=== PATIENT | female | born 1960 ===

== ENCOUNTER 2017-12-17 11:45 | Emergency (ER) | payer OTHER ==
[2017-12-17 11:46] VITALS: BMI 27.5
--- NOTE | 2017-12-17 12:18 | C.PDOC ---
History Of Present Illness 57 y/o female with PMHx of PKD brought in by family for possible emergent dialysis. Daughter at bedside states the patient has had a dry cough for 5 days. They went to see their PMD last week, and at that time the patient was noted to have lower leg swelling bilaterally, left > right. Daughter notes that whenever the patient has swelling, the left is always more swollen than right. Otherwise patient denies any CP, SOB, CORREA, significant weight gain, fever, chills, or other complaints. Daughter states they called the nephrology office today and were referred to the ED for emergent dialysis. [employer] Supervisor: Dr. Cano/[facility] group Time Seen by Provider: 12/17/17 12:16 Chief Complaint (Nursing): Cough, Cold, Congestion History Per: Patient, Family (Daughter at bedside, translating for pt) Onset/Duration Of Symptoms: Days Current Symptoms Are (Timing): Still Present Reports Recently: Treated By A Physician Past Medical History Reviewed: Historical Data, Nursing Documentation, Vital Signs Vital Signs: Last Vital Signs Temp 97.7 F 12/17/17 15:50 Pulse 71 12/17/17 15:50 Resp 20 12/17/17 15:50 BP 153/73 H 12/17/17 15:50 Pulse Ox 100 12/17/17 15:50 - Medical History PMH: Anxiety, GERD, HTN, Hypercholesterolemia, Hyperlipidemia, Hypothyroidism, Osteoporosis, Pneumonia, End Stage Renal Disease, Chronic Kidney Disease Denies: Hyperthyroidism Surgical History: Appendectomy - [facility] Procedures DX ULTRASOUND-DIGESTIVE (09/22/11) ESOPHAGOGASTRODUODENOSCOPY [EGD] W/CLOSED BIOPSY (09/22/11) INJECT/INFUSE ELECTROLYT (11/29/14) INJECT/INFUSE NEC (11/29/14) MRI OF OTHER AND UNSPECIFIED SITES (06/24/06) URETERAL CATHETERIZATION (01/03/14) VACCINATION NEC (01/03/14) Family History: States: Unknown Family Hx - Social History Hx Tobacco Use: No Hx Alcohol Use: No (socially) Hx Substance Use: No - Immunization History Hx Tetanus Toxoid Vaccination: No Hx Influenza Vaccination: No Hx Pneumococcal Vaccination: No Review Of Systems Except As Marked, All Systems Reviewed And Found Negative. Constitutional: Negative for: Fever, Chills Cardiovascular: Negative for: Chest Pain Respiratory: Positive for: Cough. Negative for: Shortness of Breath, SOB with Excertion, Sputum Gastrointestinal: Negative for: Vomiting, Abdominal Pain, Diarrhea Genitourinary: Negative for: Dysuria, Incontinence, Hematuria Musculoskeletal: Positive for: Other (Lower leg swelling) Neurological: Negative for: Weakness, Numbness, Incoordination, Headache, Dizziness Physical Exam - Physical Exam Appears: Non-toxic, No Acute Distress Skin: Normal Color, Warm, Dry Head: Atraumatic, Normacephalic Eye(s): bilateral: Normal Inspection, PERRL, EOMI Nose: Normal Oral Mucosa: Moist Neck: Normal ROM Chest: Symmetrical Cardiovascular: Rhythm Regular, No Murmur Respiratory: No Accessory Muscle Use, Rales (mild basilar rales), No Rhonchi, No Wheezing Gastrointestinal/Abdominal: Soft, No Tenderness, No Distention Extremity: Normal ROM, No Calf Tenderness, Capillary Refill (less than 2 sec), Swelling (+1 edema to bilateral lower extremities, left > right) Pulses: Left Dorsalis Pedis: Normal, Right Dorsalis Pedis: Normal Neurological/Psych: Oriented x3, Normal Speech, Normal Cranial Nerves ED Course And Treatment - Laboratory Results Result Diagrams: 12/17/17 12:48 12/17/17 12:48 O2 Sat by Pulse Oximetry: 99 Pulse Ox Interpretation: Normal - Radiology CXR: Interpreted by Me CXR Interpretation: Yes: No Acute Disease Progress - Re-Evaluation Re-evaluation Note: 12/17/17 13:41 D/W DR ARRIAGA C/F DR CANO. WILL CONSULT, ADMIT MED LAW RESEARCHER D/W DR Vy WILLETT WILL ADMIT 12/17/17 18:25 PER [employer], NO FLOOR OR TELE BEDS AVAILABLE FOR REST OF EVENING. PT STATES FRUSTRATION AT PROLONGED ER STAY, DOESNT WANT TO STAY FOR ADMISSION. STATES HAS APPT W DR CANO 12/18. NARD, VSS NO INDICATION FOR EMERGENCY HD. WILL DC. DR ARRIAGA NOTIFIED - Data Reviewed Data Reviewed: Lab, Diagnostic imaging, EKG, Old records - Continuity of Care Discussed patient case with:: Patient, Family-HIPPA compliant Medical Decision Making Medical Decision Making: Impression: ACID MIXER COUGH, RECUR SWELLING. H/O CRI, PCO REFERRED CONCERN RENAL FAILURE. NARD. R/ O ACUTE RENAL FAIL. Initial Plan: --Labs --EKG --Chest X-Ray --[facility] nephrology group Disposition Counseled Patient/Family Regarding: Studies Performed, Diagnosis - Disposition Disposition: HOME/ ROUTINE Disposition Time: 18:28 Condition: GOOD - POA Present On Arrival: None - Clinical Impression Clinical Impression: Renal insufficiency, Swelling, Cough - Scribe Statement The provider has reviewed the documentation as recorded by the Shailaibdestinee Leslie Provider Attestation: All medical record entries made by the Shailaibdestinee were at my direction and personally dictated by me. I have reviewed the chart and agree that the record accurately reflects my personal performance of the history, physical exam, medical decision making, and the department course for this patient. I have also personally directed, reviewed, and agree with the discharge instructions and disposition. Decision To Admit - Pt Status Changed To: Hospital Disposition Of: Inpatient - Admit Certification Admit to Inpatient:: After my assessment, the patient will require hospitalization for at least two midnights. This is because of the severity of symptoms shown, intensity of services needed, and/or the medical risk in this patient being treated as an outpatient. - InPatient: Physician Admission Certification: I certify that this patient requires 2 or more midnights of care for the following reason:: SEE NOTE - . Bed Request Type: Regular Admitting Physician: Nivia Willett Patient Diagnosis: Renal insufficiency, Swelling, Cough
[2017-12-17 12:56] LABS: BASO % 0.5 % (0.0-2.0); EOS # 0.3 K/uL (0.0-0.7); HEMOGLOBIN 10.6 g/dL (11.0-16.0); LYMPH # 1.7 K/uL (1.0-4.3); LYMPH % 21.9 % (20.0-40.0); MEAN CELL VOLUME 90.7 fL (81.0-99.0); MEAN CORPUSCULAR HEMOGLOBIN 30.3 pg (27.0-31.0); MEAN CORPUSCULAR HGB CONC 33.4 g/dL (33.0-37.0); MEAN PLATELET VOLUME 8.8 fL (7.2-11.7); MONO # 0.6 K/uL (0.0-0.8); MONO % 7.7 % (0.0-10.0); NEUT # 5.2 K/uL (1.8-7.0); NEUT % 65.9 % (50.0-75.0); NRBC % 0.1 % (0.0-2.0); RBC 3.48 Mil/uL (3.80-5.20); RED CELL DISTRIBUTION WIDTH 13.7 % (11.5-14.5); WHITE BLOOD COUNT 7.9 K/uL (4.8-10.8)
[2017-12-17 13:07] LABS: PROTHROMBIN TIME 10.6 SECONDS (9.7-12.2)
[2017-12-17 13:17] LABS: ALB/GLOB RATIO 1.6 (1.0-2.1); ALBUMIN 4.4 g/dL (3.5-5.0); CALCIUM 9.1 mg/dl (8.6-10.4)
[2017-12-17 13:22] LABS: URINE BILIRUBIN NEGATIVE (NEGATIVE); URINE BLOOD 1+ (NEGATIVE); URINE CLARITY Clear (Clear); URINE COLOR Straw (YELLOW); URINE GLUCOSE (UA) NORMAL (Normal); URINE LEUKOCYTE ESTERASE TRACE Leu/uL (Negative); URINE PROTEIN NEGATIVE (NEGATIVE); URINE UROBILINOGEN NORMAL mg/dL (0.2-1.0)
--- NOTE | 2017-12-17 13:40 | RAD ---
Date of service: 12/17/2017 HISTORY: cough COMPARISON: No prior. TECHNIQUE: Chest PA and lateral FINDINGS: LUNGS: Mild bibasilar atelectasis. PLEURA: No significant pleural effusion identified. No pneumothorax apparent. CARDIOVASCULAR: Mild cardiomegaly. OSSEOUS STRUCTURES: No significant abnormalities. VISUALIZED UPPER ABDOMEN: Normal. OTHER FINDINGS: None. IMPRESSION: Mild bibasilar atelectasis.
[2017-12-17 15:54] VITALS: BP 153/73; PULSE 71; TEMP 97.7
[2017-12-17 15:57] VITALS: RESP 20
[2017-12-17 18:28] VITALS: O2SAT 99
--- NOTE | 2017-12-17 19:13 | CP.PCM.HP ---
Past Patient History - Infectious Disease Hx of Infectious Diseases: None - Tetanus Immunizations Tetanus Immunization: Unknown - Past Social History Smoking Status: Former Smoker - CARDIAC Hx Hypercholesterolemia: Yes Hx Hypertension: Yes - PULMONARY Hx Pneumonia: Yes - NEUROLOGICAL Hx Neurological Disorder: Yes Hx Vertigo: Yes - HEENT Hx HEENT Problems: No - RENAL Hx Chronic Kidney Disease: Yes - ENDOCRINE/METABOLIC Hx Hyperthyroidism: No Hx Hypothyroidism: Yes - HEMATOLOGICAL/ONCOLOGICAL Hx Blood Transfusions: No Hx Blood Transfusion Reaction: No - INTEGUMENTARY Hx Dermatological Problems: No - MUSCULOSKELETAL/RHEUMATOLOGICAL Hx Osteoporosis: Yes - GASTROINTESTINAL Hx Gastrointestinal Disorders: Yes Hx Gastroesophageal Reflux: Yes - GENITOURINARY/GYNECOLOGICAL Hx Genitourinary Disorders: Yes Hx Urinary Tract Infection: Yes - PSYCHIATRIC Hx Anxiety: Yes Hx Substance Use: No - SURGICAL HISTORY Hx Appendectomy: Yes - ANESTHESIA Hx Anesthesia: Yes Hx Anesthesia Reactions: No Hx Malignant Hyperthermia: No Meds Home Medications: Home Medication List Medication Instructions Recorded Confirmed Type Benzonatate [Tessalon Perles] 200 mg PO TID PRN #15 sgl 12/17/17 Rx Allergies/Adverse Reactions: Allergies Allergy/AdvReac Type Severity Reaction Status Date / Time PO contrast Allergy ITCHING Uncoded 12/17/17 11:55 Physical Exam - Constitutional Appears: Well - Head Exam Head Exam: ATRAUMATIC, NORMAL INSPECTION, NORMOCEPHALIC - Eye Exam Eye Exam: EOMI, Normal appearance, PERRL Pupil Exam: NORMAL ACCOMODATION, PERRL - ENT Exam ENT Exam: Mucous Membranes Moist, Normal Exam - Neck Exam Neck exam: Positive for: Normal Inspection - Respiratory Exam Respiratory Exam: Decreased Breath Sounds - Cardiovascular Exam Cardiovascular Exam: REGULAR RHYTHM, +S1, +S2 - GI/Abdominal Exam GI & Abdominal Exam: Diminished Bowel Sounds, Soft - Rectal Exam Rectal Exam: Deferred Results - Vital Signs Recent Vital Signs: Last Vital Signs Temp 97.7 F 12/17/17 15:50 Pulse 71 12/17/17 15:50 Resp 20 12/17/17 15:50 BP 153/73 H 12/17/17 15:50 Pulse Ox 99 12/17/17 18:29 - Labs Result Diagrams: 12/17/17 12:48 12/17/17 12:48 Labs: Laboratory Results - last 24 hr 12/17/17 12/17/17 12/17/17 12:48 12:48 12:48 WBC 7.9 RBC 3.48 L Hgb 10.6 L Hct 31.6 L MCV 90.7 MCH 30.3 MCHC 33.4 RDW 13.7 Plt Count 287 MPV 8.8 Neut % (Auto) 65.9 Lymph % (Auto) 21.9 Lane % (Auto) 7.7 Eos % (Auto) 4.0 Baso % (Auto) 0.5 Neut # (Auto) 5.2 Lymph # (Auto) 1.7 Lane # (Auto) 0.6 Eos # (Auto) 0.3 Baso # (Auto) 0.0 PT 10.6 INR 1.0 APTT 37 H Sodium 145 Potassium 4.3 Chloride 108 H Carbon Dioxide 22 Anion Gap 19 BUN 56 H Creatinine 4.2 H Est GFR ( Amer) 13 Est GFR (Non-Af Amer) 11 Random Glucose 121 H Calcium 9.1 Total Bilirubin 0.6 AST 17 ALT 22 Alkaline Phosphatase 96 Total Protein 7.1 Albumin 4.4 Globulin 2.7 Albumin/Globulin Ratio 1.6 Urine Color Urine Clarity Urine pH Ur Specific Burley Urine Protein Urine Glucose (UA) Urine Ketones Urine Blood Urine Nitrate Urine Bilirubin Urine Urobilinogen Ur Leukocyte Esterase Urine WBC (Auto) Urine RBC (Auto) 12/17/17 13:08 WBC RBC Hgb Hct MCV MCH MCHC RDW Plt Count MPV Neut % (Auto) Lymph % (Auto) Lane % (Auto) Eos % (Auto) Baso % (Auto) Neut # (Auto) Lymph # (Auto) Lane # (Auto) Eos # (Auto) Baso # (Auto) PT INR APTT Sodium Potassium Chloride Carbon Dioxide Anion Gap BUN Creatinine Est GFR ( Amer) Est GFR (Non-Af Amer) Random Glucose Calcium Total Bilirubin AST ALT Alkaline Phosphatase Total Protein Albumin Globulin Albumin/Globulin Ratio Urine Color Straw Urine Clarity Clear Urine pH 6.0 Ur Specific [place] 1.006 Urine Protein Negative Urine Glucose (UA) Normal Urine Ketones Negative Urine Blood 1+ H Urine Nitrate Negative Urine Bilirubin Negative Urine Urobilinogen Normal Ur Leukocyte Esterase Trace Urine WBC (Auto) 2 Urine RBC (Auto) 6 H
[2017-12-17] MEDS ORDERED: Potassium Chloride 10 mEq ER Tab PO STA ×3 (21:39→21:45)
[2017-12-17] MEDS ORDERED: ERGOCALCIFEROL 1.25 MG PO SCH (21:45)
[2017-12-17] MEDS ORDERED: Home Med 1 UNIT (Atorvastatin [Lipitor] 10 MG) PO SCH (21:45)
[2017-12-18] MEDS ORDERED: Levothyroxine 50 MCG TAB PO SCH ×2 (06:30→10:00)
[2017-12-18] MEDS ORDERED: CALCITRIOL 0.25 MCG PO SCH (10:00)
[2017-12-18] MEDS ORDERED: Pantoprazole 40 mg EC Tab PO SCH (10:00)
[2017-12-24] MEDS ORDERED: Ergocalciferol 50,000 Intl Units Cap PO SCH (10:00)
== END 2017-12-17 18:36 | disposition home or self-care (01) ==
LOC: C.ER 11:45 → C.9E 13:45 → UNDOADMIN 13:45 → C.9E 18:36 → UNDODISIN 22:51
DX: N28.9 Disorder of kidney and ureter, unspecified (principal); R05 Cough; M79.89 Other specified soft tissue disorders

== ENCOUNTER 2018-07-29 07:03 | Emergency (ER) | payer OTHER ==
[2018-07-29 07:03] VITALS: BMI 27.5
[2018-07-29 07:26] VITALS: TEMP 97.7
--- NOTE | 2018-07-29 07:50 | C.PDOC ---
History Of Present Illness RECUR VERTIGO @ 0230. ONSET WHILE SLEEPING, PS WAS TURNING IN BED FELT "VIOLENT SPINNING" W NEW ONSET ASSOC NAUSEA. TOOK ZOFRAN 4 MG. PS AWOKE 0600 FELT RECUR "SEVERE SPINNING" UPON STANDING. TOOK MECLIZINE 12.5. STILL W PERSISTENT VERTIGO AND NAUSEA. +PHOTOPHOBIA. DENIES FOCAL WEAKNESS. PS UNABLE TO START HD THIS MORNING, REFERRED BY DIALYSIS CENTER FOR EVAL. DENIES OTHER ASSOC SX PMHx of ESRD requiring HD, Autosomal Dominant Polycystic Kidney Disease, GERD, HTN, HLD, hypothyroidism, osteoporosis, CKD stage 5 EXAM MOD DIST NONTOXIC HEENT +PHOTOPHOBIA UNABLE TO ASSESS FOR NYSTAGMUS NECK SUPPLE NO MENINGISMUS NEURO NO FOCAL DEF AO3 ABD SOFT NT ND NO R/G REMAINDE RNEG Time Seen by Provider: 07/29/18 07:25 History Per: Patient History/Exam Limitations: no limitations Onset/Duration Of Symptoms: Hrs Current Symptoms Are (Timing): Still Present Severity: Moderate Past Medical History Reviewed: Historical Data, Nursing Documentation, Vital Signs Vital Signs: Last Vital Signs Temp 97.7 F 07/29/18 07:25 Pulse 74 07/29/18 07:25 Resp 20 07/29/18 07:25 BP 181/72 H 07/29/18 07:25 Pulse Ox 100 07/29/18 07:25 - Medical History PMH: Anxiety, GERD, HTN, Hypercholesterolemia, Hyperlipidemia, Hypothyroidism, Osteoporosis, Pneumonia, End Stage Renal Disease, Chronic Kidney Disease (SEE COMMENT) Denies: Hyperthyroidism Surgical History: Appendectomy - [facility] Procedures (12/18/17) DX ULTRASOUND-DIGESTIVE (09/22/11) ESOPHAGOGASTRODUODENOSCOPY [EGD] W/CLOSED BIOPSY (09/22/11) INJECT/INFUSE ELECTROLYT (11/29/14) INJECT/INFUSE NEC (11/29/14) MRI OF OTHER AND UNSPECIFIED SITES (06/24/06) URETERAL CATHETERIZATION (01/03/14) VACCINATION NEC (01/03/14) Family History: States: No Known Family Hx - Social History Hx Tobacco Use: No Hx Alcohol Use: No (Former) Hx Substance Use: No - Immunization History Hx Tetanus Toxoid Vaccination: No Hx Influenza Vaccination: Yes (12/2017) Hx Pneumococcal Vaccination: Yes (12/2017) Review Of Systems Except As Marked, All Systems Reviewed And Found Negative. Constitutional: Negative for: Fever, Chills Cardiovascular: Negative for: Chest Pain Respiratory: Negative for: Shortness of Breath Gastrointestinal: Positive for: Nausea. Negative for: Vomiting, Abdominal Pain Neurological: Positive for: Dizziness Physical Exam - Physical Exam Appears: Non-toxic, Other (moderate distress) Skin: Normal Color, Warm, Dry Head: Atraumatic, Normacephalic Eye(s): bilateral: Normal Inspection, Other (+photophobia, unable to assess for nystagmus) Neck: Supple, Other (no meningismus) Chest: Symmetrical Cardiovascular: Rhythm Regular Respiratory: Normal Breath Sounds, No Rales, No Rhonchi, No Wheezing Gastrointestinal/Abdominal: Normal Exam, Soft, No Tenderness, No Guarding, No Rebound Neurological/Psych: Oriented x3, Normal Speech, Other (AO3, no focal deficits) ED Course And Treatment - Laboratory Results Result Diagrams: 07/29/18 08:38 07/29/18 08:38 ECG: Interpreted By Tn ECG Rhythm: Sinus Rhythm ECG Interpretation: Normal Interpretation Of ECG: INTERVALS WNL Rate From EC O2 Sat by Pulse Oximetry: 100 (RA) Pulse Ox Interpretation: Normal - CT Scan/US CT-Head Other Rad Studies (CT/US): Read By Radiologist, Radiology Report Reviewed CT/US Interpretation: Date of service: 07/29/2018. PROCEDURE: CT HEAD WITHOUT CONTRAST. HISTORY: VERTIGO RO CVA. COMPARISON: None available. TECHNIQUE: Axial computed tomography images were obtained through the head/brain without intravenous contrast. Radiation dose: Total exam DLP = 729.75 mGy-cm. This CT exam was performed using one or more of the following dose reduction techniques: Automated exposure control, adjustment of the mA and/or kV according to patient size, and/or use of iterative reconstruction technique. FINDINGS: HEMORRHAGE: No intracranial hemorrhage. BRAIN: To-white matter differentiation is preserved. There is no mass, mass effect or abnormal extra- axial fluid collection. There is no territorial infarction. The midline sagittal structures are normal. VENTRICLES: There is mild age-related global parenchymal volume loss and proportionate enlargement of the ventricles and cortical sulci. CALVARIUM: There is no calvarial fracture or extracranial soft tissue swelling. PARANASAL SINUSES: There are retention cysts/polyps in the maxillary sinuses, larger on the left. There is fluid and aerosolized secretions in the sphenoid sinus. MASTOID AIR CELLS: Predominantly clear. OTHER FINDINGS: None. IMPRESSION: 1. No acute intracranial abnormality.If there is a persistent focal neurologic deficit and an ongoing clinical concern for acute infarction, an MRI of the brain without intravenous contrast would be a more sensitive modality for evaluation of hyperacute/acute ischemic infarction. 2. Fluid in the sphenoid sinus with aerosolized secretions may represent acute sinusitis in the appropriate clinical setting. 3. 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 Progress - Re-Evaluation Re-evaluation Note: 07/29/18 09:30 DIZZYNESS IMPROVED BUT STILL ASSOC W POSITION CHANGE. NAUSEA RESOLVED. CT REPORT REVIEWED. PS HO SINUSITIS. DENIES SINUS KRISTAL, RECENT FEVER. NEURO INTACT VSS 07/29/18 11:37 NOW ASYMPT. AMBUL WO DIFF. PT WISHES DC HOME - Data Reviewed Data Reviewed: Lab, Diagnostic imaging, EKG, Old records Medical Decision Making Medical Decision Making: Plan: --Labs --CT-Head --Ativan IV --Zofran IV Disposition Counseled Patient/Family Regarding: Studies Performed, Diagnosis, Need For Followup - Disposition Referrals: YOUR,PMD [Other] Disposition: HOME/ ROUTINE Disposition Time: 11:37 Condition: IMPROVED Prescriptions: Meclizine [Antivert] 50 mg PO TID PRN #15 tab PRN Reason: Dizziness Instructions: Vertigo (a Type of Dizziness) (DC) Forms: [employer] (Azeri) - Clinical Impression Clinical Impression: Vertigo - Scribe Statement The provider has reviewed the documentation as recorded by the Carter Alegre Provider Attestation: All medical record entries made by the Carter were at my direction and personally dictated by me. I have reviewed the chart and agree that the record accurately reflects my personal performance of the history, physical exam, medical decision making, and the department course for this patient. I have also personally directed, reviewed, and agree with the discharge instructions and disposition.
[2018-07-29 08:44] LABS: BASO % 0.5 % (0.0-2.0); EOS # 0.1 K/uL (0.0-0.7); EOS % 1.9 % (0.0-4.0); HEMOGLOBIN 11.1 g/dL (11.0-16.0); LYMPH # 1.3 K/uL (1.0-4.3); LYMPH % 17.5 % (20.0-40.0); MEAN CELL VOLUME 94.4 fL (81.0-99.0); MEAN CORPUSCULAR HEMOGLOBIN 32.6 pg (27.0-31.0); MEAN CORPUSCULAR HGB CONC 34.5 g/dL (33.0-37.0); MEAN PLATELET VOLUME 8.6 fL (7.2-11.7); MONO # 0.4 K/uL (0.0-0.8); MONO % 5.5 % (0.0-10.0); NEUT # 5.7 K/uL (1.8-7.0); NEUT % 74.6 % (50.0-75.0); RBC 3.42 Mil/uL (3.80-5.20); RED CELL DISTRIBUTION WIDTH 14.1 % (11.5-14.5); WHITE BLOOD COUNT 7.6 K/uL (4.8-10.8)
[2018-07-29 08:58] LABS: CALCIUM 9.4 mg/dl (8.6-10.4)
--- NOTE | 2018-07-29 09:21 | CT ---
Date of service: 07/29/2018 PROCEDURE: CT HEAD WITHOUT CONTRAST. HISTORY: VERTIGO RO CVA COMPARISON: None available. TECHNIQUE: Axial computed tomography images were obtained through the head/brain without intravenous contrast. Radiation dose: Total exam DLP = 729.75 mGy-cm. This CT exam was performed using one or more of the following dose reduction techniques: Automated exposure control, adjustment of the mA and/or kV according to patient size, and/or use of iterative reconstruction technique. FINDINGS: HEMORRHAGE: No intracranial hemorrhage. BRAIN: To-white matter differentiation is preserved. There is no mass, mass effect or abnormal extra-axial fluid collection. There is no territorial infarction. The midline sagittal structures are normal. VENTRICLES: There is mild age-related global parenchymal volume loss and proportionate enlargement of the ventricles and cortical sulci. CALVARIUM: There is no calvarial fracture or extracranial soft tissue swelling. PARANASAL SINUSES: There are retention cysts/polyps in the maxillary sinuses, larger on the left. There is fluid and aerosolized secretions in the sphenoid sinus. MASTOID AIR CELLS: Predominantly clear. OTHER FINDINGS: None. IMPRESSION: 1. No acute intracranial abnormality.If there is a persistent focal neurologic deficit and an ongoing clinical concern for acute infarction, an MRI of the brain without intravenous contrast would be a more sensitive modality for evaluation of hyperacute/acute ischemic infarction. 2. Fluid in the sphenoid sinus with aerosolized secretions may represent acute sinusitis in the appropriate clinical setting. 3. 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
[2018-07-29 12:02] VITALS: BP 151/71; PULSE 68; RESP 18
[2018-07-29 14:55] VITALS: O2SAT 100
--- NOTE | 2018-07-30 20:34 | CARD ---
APPROVED REPORT Date of service: 07/29/2018 EKG Measurement Heart [id number] <Conclusion> Normal sinus rhythm Moderate voltage criteria for LVH, may be normal variant Borderline ECG
== END 2018-07-29 12:01 | disposition home or self-care (01) ==
LOC: C.ER 07:03
DX: R42 Dizziness and giddiness (principal); E03.9 Hypothyroidism, unspecified; I12.0 Hypertensive chronic kidney disease with stage 5 chronic kidney disease or end stage renal disease; N18.6 End stage renal disease; Z99.2 Dependence on renal dialysis; E78.00 Pure hypercholesterolemia, unspecified; E78.5 Hyperlipidemia, unspecified; M81.0 Age-related osteoporosis without current pathological fracture; Q61.2 Polycystic kidney, adult type
CPT/HCPCS: 70450; 80048; 82948; 85025; 93005; 96374; 96375; 99285; J2060; J2405